=== PATIENT | female | born 1970 | race Hispanic/Latino ===

== ENCOUNTER 2018-07-11 17:05 | Inpatient (IN) | payer MEDICAID ==
[2018-07-11 17:08] VITALS: BMI 31.0
--- NOTE | 2018-07-11 17:39 | C.PDOC ---
History Of Present Illness 48 y/o female pt with hx of cutting presents to the ER c/o suicidal ideation for the past week. Pt reports she has auditory hallucinations telling her to hang or cut herself. Pt notes she has suicidal thoughts in some form or another over a decade but has been worse in the past week. She also notes that she drinks a "large bottle" of vodka a day. She also report smoking cigarettes and using 50 bags of heroin every two days. Pt denies HI and any other associated sx or complaints at this time. Time Seen by Provider: 07/11/18 17:07 Chief Complaint (Nursing): Psychiatric Evaluation History Per: Patient History/Exam Limitations: no limitations Onset/Duration Of Symptoms: Days Current Symptoms Are (Timing): Still Present Modifying Factor(s): Alcohol, Other (heroin and cigarets) Associated Symptoms: Suicidal Thoughts Past Medical History Reviewed: Historical Data, Nursing Documentation, Vital Signs - Medical History PMH: Asthma, Depression, HTN Surgical History: Appendectomy Family History: States: No Known Family Hx - Social History Hx Tobacco Use: Yes Hx Alcohol Use: No Hx Substance Use: Yes (heroin use) - Immunization History Hx Tetanus Toxoid Vaccination: Yes Hx Influenza Vaccination: Yes Hx Pneumococcal Vaccination: Yes Review Of Systems Constitutional: Positive for: Other (hx of cutting ). Negative for: Fever, Chills Cardiovascular: Negative for: Chest Pain, Palpitations Respiratory: Negative for: Cough, Shortness of Breath Gastrointestinal: Negative for: Nausea, Vomiting, Abdominal Pain Genitourinary: Negative for: Dysuria, Hematuria Musculoskeletal: Negative for: Neck Pain, Back Pain Skin: Negative for: Rash Neurological: Negative for: Weakness, Numbness Psych: Positive for: Suicidal ideation, Other (auditory hallucinations ) Physical Exam - Physical Exam Appears: Non-toxic, No Acute Distress Skin: Warm, Dry Head: Atraumatic, Normacephalic Eye(s): bilateral: Normal Inspection, PERRL, EOMI Chest: Symmetrical Cardiovascular: Rhythm Regular Respiratory: Normal Breath Sounds Gastrointestinal/Abdominal: Soft, No Tenderness Back: No CVA Tenderness Extremity: Normal ROM (x4) Neurological/Psych: Oriented x3, Normal Speech ED Course And Treatment - Laboratory Results Result Diagrams: 07/11/18 17:33 07/11/18 17:33 Medical Decision Making Medical Decision Making: Plans: -- chem labs -- blood work Patient medically cleared, evaluated by crisis, admitted to psych unit under Dr. Waterman. Patient given zofran and clonidine PO for opiate withdrawal symptoms. Disposition - Disposition Disposition: HOSPITALIZED Disposition Time: 18:54 Condition: STABLE - Clinical Impression Clinical Impression: Opiate abuse, continuous, Suicidal ideation, Alcohol abuse - Scribe Statement The provider has reviewed the documentation as recorded by the Scribe Debora Booth Provider Attestation: All medical record entries made by the Scribe were at my direction and personally dictated by me. I have reviewed the chart and agree that the record accurately reflects my personal performance of the history, physical exam, medical decision making, and the department course for this patient. I have also personally directed, reviewed, and agree with the discharge instructions and disposition.
[2018-07-11 17:47] LABS: BASO % 0.5 % (0.0-2.0); EOS # 0.1 K/uL (0.0-0.7); EOS % 1.4 % (0.0-4.0); HEMOGLOBIN 12.4 g/dL (11.0-16.0); LYMPH # 3.4 K/uL (1.0-4.3); LYMPH % 36.6 % (20.0-40.0); MEAN CELL VOLUME 90.9 fL (81.0-99.0); MEAN CORPUSCULAR HGB CONC 34.1 g/dL (33.0-37.0); MEAN PLATELET VOLUME 7.4 fL (7.2-11.7); MONO # 0.5 K/uL (0.0-0.8); MONO % 5.4 % (0.0-10.0); NEUT # 5.1 K/uL (1.8-7.0); NEUT % 56.1 % (50.0-75.0); RBC 4.01 Mil/uL (3.80-5.20); RED CELL DISTRIBUTION WIDTH 14.4 % (11.5-14.5); WHITE BLOOD COUNT 9.2 K/uL (4.8-10.8)
[2018-07-11 17:52] LABS: ALB/GLOB RATIO 1.6 (1.0-2.1); ALBUMIN 4.7 g/dL (3.5-5.0); ALT/SGPT 82 U/L (9-52); AST/SGOT 48 U/L (14-36); BLOOD UREA NITROGEN 17 mg/dL (7-17); CALCIUM 9.9 mg/dl (8.6-10.4); GFR NON-AFRICAN AMERICAN > 60
[2018-07-11 17:58] LABS: SQUAMOUS EPITHIAL 34 /hpf (0-5); URINE BACTERIA RARE (<OCC); URINE BILIRUBIN NEGATIVE (NEGATIVE); URINE BLOOD NEGATIVE (NEGATIVE); URINE CLARITY Hazy (Clear); URINE COLOR Yellow (YELLOW); URINE GLUCOSE (UA) NORMAL (Normal); URINE LEUKOCYTE ESTERASE 2+ Leu/uL (Negative); URINE PROTEIN NEGATIVE (NEGATIVE)
[2018-07-11 18:00] LABS: HCG,QUALITATIVE URINE NEGATIVE (NEGATIVE)
[2018-07-11 18:03] LABS: BARBITURATES, UR NEGATIVE (NEGATIVE); BENZODIAZEPINES, UR NEGATIVE (NEGATIVE); OPIATES, UR NEGATIVE (NEGATIVE); PHENCYCLIDINE, UR NEGATIVE (NEGATIVE)
--- NOTE | 2018-07-11 19:46 | PCM.BM ---
<Jillian Gerber - Last Filed: 07/11/18 19:43> Treatment Plan Problems - Problems identified on initial assessmt Suicidal Ideations Date Initiated: 07/11/18 Time Initiated: 19:45 Assessment reference: PE, NA Status: Active Ineffective coping Date Initiated: 07/11/18 Time Initiated: 19:45 Assessment reference: NA Status: Active Auditory Hallucinations Date Initiated: 07/11/18 Time Initiated: 19:45 Assessment reference: NA Status: Active Treatment assets and liabiliti Patient Assests: cooperative, ADL independent Patient Liabilities: financial problems, poor support system, substance abuse - Milieu Protocol Maintain good personal hygiene: daily Encourage regular showers, daily Remind patient to perform daily oral care, daily Assist patient to perform ADL's Conduct patient checks and document Observation sheet: Q15 minutes Maintain personal safety: every shift Educate patient to report safety concerns to staff, every shift Monitor environment for contraband/sharps Medication safety: Monitor for expected outcome, potential side effects: every shift, Assess barriers to learning: every shift, Assess readiness for medication education: every shift <Curry Galan - Last Filed: 07/14/18 11:03> - Diagnosis (1) Schizo-affective schizophrenia Status: Acute Interventions: 07/14/18 11:04 * Assess/adjust medications daily and /or as needed * See patient on an individual basis 7x/week to assess status of hallucinations * Discuss risks, benefits, side effects and alternatives of medications * (2) Alcohol dependence Status: Acute Interventions: * Assess 7x/week regarding severity of withdrawal * Educate regarding risks, benefits, side effects and alternatives of medications * Use Motivational Interviewing for abstinence * Use CBT for relapse prevention * Medication management for withdrawal symptoms * Encourage medication assisted treatment * <Taylor Crook - Last Filed: 07/14/18 12:30> Family Contact Family involvement: Patient does not wish Family/SO involvement Family contact: Patient declines to allow family contact at present - Goals for Treatment Patient goals for treatment: "I want to go to a rehab." Discharge/Continuing Care - Education Needs Education Needs: Patient Medication, Patient Diagnosis/Disease Process, Patient Coping Skills, Patient Placement options, Patient Community resources - Discharge Discharge Criteria: Free of Suicidal thoughts, Normal sleep pattern, Ability to care for self, No longer exhibiting s/s of withdrawal, Reduction of target symptoms Discharge to:: Substance Abuse Rehab - Treatment Team Participation Discussed with Family/SO: No Was Patient/Family/SO present at Treatment Team Meeting: Yes
--- NOTE | 2018-07-12 23:42 | PCM.PSYCH ---
Initial Psychiatric Evaluation - Initial Psychiatric Evaluation Type of Admission: Voluntary () Legal Status: Capacity Chief Complaint (in patient's own words): "I am hearing voices telling me to hurt myself" History of Present Illness and Precipitating Events: Patient is a 48 year old female who presented to the ED for command auditory hallucinations telling her to hurt herself. She reports that she has been hearing voices for the one month. She reports that she takes Seroquel 800mg, Thorazine 50mg TID, Haldol 5mg at bedtime and Remeron 30mg at bedtime. Patient reports that she has had multiple psychiatric admissions both voluntary and involuntary at [facility] and at [facility]. Patient reports that the last time she was at [facility] was on June 18, and she was hospitalized for almost one month. Patient reports drinking a bottle of vodka daily, last use was 2-3 days ago, she also reports using heroin, and uses about 50 bags a day by sniffing, last use was 2 days ago. Patient reports that she started using heroin at age 43. Patient also reports using Xanax off the streets, she used about 3 bars/day. She smokes about 1/2 pack of cigarettes daily. She reports a history of suicide attempts in the past by overdosing on Ambien. She denies any seizures or DTs in the past. She denies SI/HI at this time PsychHx: Schizophrenia, Depression, Anxiety, Alcohol Abuse, Heroin Abuse, Nicotine Use Disorder PMHx: Asthma FamHx: Mother - Dementia Current Medications: Active Medications Generic Name Dose Route Start Last Admin Trade Name Freq PRN Reason Stop Dose Admin Chlordiazepoxide 25 mg 07/13/18 00:00 Librium PO 07/16/18 23:59 Q6 SUE Taper Hydroxyzine HCl 25 mg 07/12/18 13:53 07/12/18 20:11 Atarax PO 25 mg Q6 PRN Administration Anxiety Quetiapine Fumarate 100 mg 07/12/18 22:00 07/12/18 21:15 Seroquel PO 100 mg BID SUE Administration Trazodone HCl 50 mg 07/12/18 18:40 07/12/18 21:16 Desyrel PO 50 mg HS PRN Administration Insomnia Past Psychiatric History - Past Psychiatric History Pertinent Medical Hx (Current Medical&Sleep Prob, Allergies): Allergies Allergy/AdvReac Type Severity Reaction Status Date / Time No Known Allergies Allergy Verified 07/11/18 17:07 Haloperidol [Haldol] 5 mg PO HS 07/11/18 OXcarbazepine [Trileptal] 300 mg PO TID 07/11/18 chlorproMAZINE [chlorPROMAZINE HCL] 50 mg PO TID 07/11/18 Review of Systems - Psychiatric Psychiatric: As Per HPI, Abnormal Sleep Pattern, Anxiety, Auditory Hallucinations, Depression, Difficulty Concentrating, Hallucinations Mental Status Examination - Personal Presentation Personal Presentation: Looks stated age - Affect Affect: Constricted, Depressed - Motor Activity Motor Activity: Calm - Reliability in Providing Information Reliability in Providing Information: Fair - Speech Speech: Relevant, Coherent - Mood Mood: Depressed, Anxious - Formal Thought Process Formal Thought Process: Hallucinations - Hallucinations/Delusions Hallucinations: Auditory - Obsessions/Compulsions Obsessions: None Compulsions: None - Cognitive Functions Orientation: Person, Place, Situation, Time Sensorium: Alert Attention/Concentration: Attentive Judgement: Imparied, as evidence by: Poor judgement DSM 5 DX - DSM 5 DSM 5 Diagnosis: Schizophrenia Alcohol use disorder Opiates use disorder - Recommended/Plan of Treatment Treatment Recommendations and Plan of Treatment: Start Seroquel 100mg BID, Librium Taper, As need medications: Atarax PRN anxiety and Trazodone PRN sleep All risks, benefits and alternatives of the meds discussed, and the pt agreed and understood. Attend groups and activities Individual therapy daily Psychoeducation and support daily Encourage compliance with meds and after care Refer to outpatient program Teach healthy lifestyle methods, i.e. diet, exercise, meditation Smoking cessation and patch if needed 35 min
[2018-07-14] MEDS: Lithium Carbonate 150 MG CAP PO SCH ×2 (10:35→18:51)
[2018-07-15 06:45] VITALS: O2SAT 97
[2018-07-15] MEDS: Lithium Carbonate 150 MG CAP PO SCH ×2 (09:33→17:10)
--- NOTE | 2018-07-15 23:24 | PCM.PYCHPN ---
Psychiatric Progress Note - Psychiatric Progress Note Patient seen today, length of contact: 15 min Patient Chief Complaint: I am still hearing voices. Problems Identified/Issues Discussed: Patient was seen and evaluated, chart reviewed and discussed with the staff. Patient reports some improvement in the mood and paranoia. She reports improvement in the feelings of hopelessness and helplessness. She reports some improvement in the auditory hallucinations and paranoia. She reports some improvement in the sleep and appetite. She is taking medication but denies any side effects. Symptoms are improving gradually but she needs to stay longer for further stab ilization. Supportive therapy was given. Medication Change: Yes Medical Record Reviewed: Yes Mental Status Examination - Cognitive Function Orientation: Person, Place, Situation, Time Memory: Intact Attention: WNL Concentration: Poor Association: Loose Fund of Knowledge: WNL - Mood Mood: Depressed, Anxious - Affect Affect: Constricted - Speech Speech: Soft - Formal Thought Process Formal Thought Process: Hallucinations, Delusions, Loosening of associations, Flight of ideas - Suicidal Ideation Suicidal Ideation: No - Homicidal Ideation Homicidal Ideation: No Goal/Treatment Plan - Goal/Treatment Plan Need for Continued Stay: Remain at risks for inpatient hospitalization Progress Toward Problem(s) and Goals/Treatment Plan: Bipolar mixed severe with psychotic features Cannabis use disorder moderate Alcohol use disorder severe Alcohol withdrawal CBT Psychoeducation and supportive therapy [place] for mood Trazodone for insomnia Haldol for psychosis Seroquel for insomnia Librium taper
[2018-07-16 06:54] VITALS: RESP 18; TEMP 98.6
[2018-07-16] MEDS: Lithium Carbonate 150 MG CAP PO SCH ×2 (09:21→17:03)
[2018-07-17] MEDS: Lithium Carbonate 150 MG CAP PO SCH (09:05)
[2018-07-17 09:07] VITALS: BP 137/83; PULSE 108
--- NOTE | 2018-07-17 09:49 | PCM.PYCHDC ---
Mental Status Examination - Mental Status Examination Orientation: Person, Place, Situation, Time Memory: Intact Mood: Neutral Affect: Constricted Speech: Soft Attention: WNL Concentration: WNL Association: WNL Fund of Knowledge: WNL Formal Thought Process: No Impairment Description of patient's judgement and insight: good, fair Psychotic Thoughts and Behaviors: denies any AVH Suicidal Ideation: No Current Homicidal Ideation?: No Discharge Summary - Discharge Note Reason for Hospitalization: Patient is a 48 year old female who presented to the ED for command auditory hallucinations telling her to hurt herself. She reports that she has been hearing voices for the one month. She reports that she takes Seroquel 800mg, Thorazine 50mg TID, Haldol 5mg at bedtime and Remeron 30mg at bedtime. Patient reports that she has had multiple psychiatric admissions both voluntary and involuntary at [facility] and at [facility]. Patient reports that the last time she was at [facility] was on June 18, and she was hospitalized for almost one month. Patient reports drinking a bottle of vodka daily, last use was 2-3 days ago, she also reports using heroin, and uses about 50 bags a day by sniffing, last use was 2 days ago. Patient reports that she started using heroin at age 43. Patient also reports using Xanax off the streets, she used about 3 bars/day. She smokes about 1/2 pack of cigarettes daily. She reports a history of suicide attempts in the past by overdosing on Ambien. She denies any seizures or DTs in the past. She denies SI/HI at this time Consultations:: List each consultation separately and include: 1. Reason for request. 2. Findings. 3. Follow-up Summary of Hospital Course include:: 1. Description of specific treatment plan utilized for patients during their course of treatmen. 2. Summarize the time-course for resolution of acute symptoms and/or regressed behaviors. 3. Describe issues identified and worked on during hospitalization. 4. Describe medication utilized. 5. Describe medical problems identified and treated. 6. Reassessment of suicide risk - Diagnosis (1) Schizo-affective schizophrenia Current Visit: Yes Status: Acute (2) Alcohol dependence Current Visit: Yes Status: Acute - Final Diagnosis (DSM 5) Condition upon Discharge: STABLE DSM 5: Bipolar mixed severe with psychotic features Cannabis use disorder moderate Alcohol use disorder severe Alcohol withdrawal Disposition: HOME/ ROUTINE Follow-up Treatment Plan: Bipolar mixed severe with psychotic features Cannabis use disorder moderate Alcohol use disorder severe Alcohol withdrawal CBT Psychoeducation and supportive therapy [place] for mood Trazodone for insomnia Haldol for psychosis Seroquel for insomnia Librium taper Prescriptions/Medication Reconciliation: Haloperidol [Haldol] 5 mg PO BID #60 tab [place] Carbonate [[place] Carbonate 150MG] 150 mg PO BID #60 cap QUEtiapine [Seroquel] 200 mg PO HS #30 tab traZODone [Desyrel] 50 mg PO HS PRN #30 tab PRN Reason: Insomnia - Smoking Cessation Smoking Cessation Medication prescribed: No - Antipsychotic Medications Pt discharged on 2 or more routine antipsychotic medications: No
== END 2018-07-17 10:42 | disposition home or self-care (01) | DRG 430 ==
LOC: C.ER 17:05 → C.5E 18:54
PROVIDERS: ADMIT Psychiatry & Neurology Psychiatry; ATTEND Psychiatry & Neurology Psychiatry
PROC: GZHZZZZ Group Psychotherapy (ICD-10-PCS; principal; 2018-07-11)
PROC: HZ2ZZZZ Detoxification Services for Substance Abuse Treatment (ICD-10-PCS; 2018-07-11)
PROC: HZ52ZZZ Individual Psychotherapy for Substance Abuse Treatment, Cognitive-Behavioral (ICD-10-PCS; 2018-07-11)
PROC: HZ59ZZZ Individual Psychotherapy for Substance Abuse Treatment, Supportive (ICD-10-PCS; 2018-07-11)
PROC: HZ56ZZZ Individual Psychotherapy for Substance Abuse Treatment, Psychoeducation (ICD-10-PCS; 2018-07-11)
PROC: HZ42ZZZ Group Counseling for Substance Abuse Treatment, Cognitive-Behavioral (ICD-10-PCS; 2018-07-11)
PROC: HZ46ZZZ Group Counseling for Substance Abuse Treatment, Psychoeducation (ICD-10-PCS; 2018-07-11)
PROC: GZ58ZZZ Individual Psychotherapy, Cognitive-Behavioral (ICD-10-PCS; 2018-07-11)
PROC: GZ56ZZZ Individual Psychotherapy, Supportive (ICD-10-PCS; 2018-07-11)
DX: F31.64 Bipolar disorder, current episode mixed, severe, with psychotic features (principal); F10.230 Alcohol dependence with withdrawal, uncomplicated; F11.23 Opioid dependence with withdrawal; F25.9 Schizoaffective disorder, unspecified; Y90.0 Blood alcohol level of less than 20 mg/100 ml; F12.20 Cannabis dependence, uncomplicated; F17.210 Nicotine dependence, cigarettes, uncomplicated; I10 Essential (primary) hypertension; J45.909 Unspecified asthma, uncomplicated; R45.851 Suicidal ideations; Z91.5 Personal history of self-harm; G47.00 Insomnia, unspecified